=== PATIENT | male | born 1985 | race Caucasian/White ===

== ENCOUNTER 2017-04-27 17:14 | Emergency (ER) | payer SELFPAY ==
[2017-04-27] MEDS ORDERED: NORMAL SALINE 1000 ML 1,000 ML IV ONE (17:21)
--- NOTE | 2017-04-27 17:21 | ER Document Report ---
ED Extremity Problem, Upper - General Mode of Arrival: Ambulatory Information source: Patient TRAVEL OUTSIDE OF THE [place] IN LAST 30 DAYS: No - HPI Similar symptoms previously: Yes Recently seen / treated by doctor: Yes <ARABELLA BOYER - Last Filed: 04/27/17 22:10> <FUAD THOMPSON - Last Filed: 04/27/17 23:20> - General Stated Complaint: SHOULDER PAIN Time Seen by Provider: 04/27/17 17:20 Notes: Patient is a 31-year-old male that presents to the emergency department today with complaints of right shoulder dislocation. Patient states everything "went black" and he fell prior to arrival. Patient states he had chest pain prior to this syncopal episode. Patient states he has frequent right shoulder dislocations. Patient states he had an ND approximately 6 months ago with 2 stents placed. (ARABELLA BOYER) - Related Data Allergies/Adverse Reactions: Penicillins Allergy (Verified 02/10/15 12:37) Past Medical History - General Information source: Patient - Social History Smoking Status: Never Smoker Cigarette use (# per day): No Frequency of alcohol use: None Drug Abuse: None Lives with: Family Family History: Reviewed & Not Pertinent, CAD - Past Medical History Cardiac Medical History: Reports: Hx Coronary Artery Disease, Hx Heart Attack - 2013, Hx Hypercholesterolemia, Hx Hypertension Past Surgical History: Reports: Hx Appendectomy, Hx Cardiac Catheterization, Hx Orthopedic Surgery - Immunizations Hx Diphtheria, Pertussis, Tetanus Vaccination: Yes <ARABELLA BOYER - Last Filed: 04/27/17 22:10> Review of Systems - Review of Systems Constitutional: No symptoms reported EENT: No symptoms reported Cardiovascular: See HPI, Chest pain, Syncope - "went black" Respiratory: No symptoms reported Gastrointestinal: No symptoms reported Genitourinary: No symptoms reported Male Genitourinary: No symptoms reported Musculoskeletal: See HPI, Other - complains of right shoulder dislocation Skin: No symptoms reported Hematologic/Lymphatic: No symptoms reported Neurological/Psychological: No symptoms reported -: Yes All other systems reviewed and negative <ARABELLA BOYER - Last Filed: 04/27/17 22:10> Physical Exam <ARABELLA BOYER - Last Filed: 04/27/17 22:10> <FUAD THOMPSON - Last Filed: 04/27/17 23:20> - Vital signs Vitals: Temp Pulse Resp BP Pulse Ox 98.7 F 103 H 16 151/82 H 96 04/27/17 17:30 04/27/17 17:30 04/27/17 17:30 04/27/17 17:30 04/27/17 17:30 - Notes Notes: Physical Exam: General: Alert, appears mildly uncomfortable. HEENT: Normocephalic. Atraumatic. PERRL. Extraocular movements intact. Oropharynx clear. Neck: Supple. Non-tender. Respiratory: No respiratory distress. Clear and equal breath sounds bilaterally. Cardiovascular: Regular rate and rhythm. Abdominal: Normal Inspection. Non-tender. No distension. Normal Bowel Sounds. Back: Non-tender. No deformity or step off. Extremities: Moves all four extremities. Upper extremities: Right shoulder deformity with tenderness on palpation. Bruises to left upper extremity. Lower extremities: Normal inspection. No edema. Normal ROM. Neurological: Normal cognition. AAOx4. Normal speech. Psychological: Normal affect. Normal Mood. Skin: Warm. Dry. Normal color. (ARABELLA BOYER) Course - Laboratory Result Diagrams: 04/27/17 18:00 04/27/17 18:00 <ARABELLA BOYER - Last Filed: 04/27/17 22:10> - Laboratory Result Diagrams: 04/27/17 18:00 04/27/17 18:00 - Diagnostic Test Radiology reviewed: Image reviewed, Reports reviewed <FUAD THOMPSON - Last Filed: 04/27/17 23:20> - Re-evaluation Re-evalutation: 04/27/17 18:40 Patient is a 31-year-old male who is being evaluated for right shoulder pain and deformity. Bedside x-ray with no evidence for dislocation. Patient had IV pain medication ordered and had received medication in route. I went to the room to tell the patient that his x-ray was not consistent with a dislocation. Patient was very upset and began ripping off his leads and stating that he wanted to leave. Did not want to talk. Just wanted to leave. Nurse went to see the patient to take his IV out. Patient then stated that he wanted to stay. X-rays were ordered on the patient but the patient refused them. Patient had initially been pleasant and became very hostile, for what reason I am not sure. I was going to continue to workup a shoulder pain and chest pain. Patient again demanded to leave AGAINST MEDICAL ADVICE. He signed the form and was discharged by nursing staff. Patient is encouraged to seek treatment at another facility because he does not want to be seen here and he states that he has a significant coronary artery history. (FUAD THOMPSON) - Vital Signs Vital signs: Temp Pulse Resp BP Pulse Ox 98.7 F 103 H 11 L 128/91 H 98 04/27/17 17:30 04/27/17 17:30 04/27/17 18:45 04/27/17 18:45 04/27/17 18:00 - Laboratory Laboratory results interpreted by me: 04/27/17 04/27/17 18:00 18:00 RBC 4.10 L Hgb 13.0 L RDW 14.6 H Glucose 123 H Creatine Kinase 177 H Discharge <ARABELLA BOYER - Last Filed: 04/27/17 22:10> <FUAD THOMPSON - Last Filed: 04/27/17 23:20> - Discharge Clinical Impression: Shoulder pain Qualifiers: Chronicity: acute Laterality: right Qualified Code(s): M25.511 - Pain in right shoulder Chest pain Qualifiers: Chest pain type: unspecified Qualified Code(s): R07.9 - Chest pain, unspecified Condition: Stable Disposition: AGAINST MEDICAL ADVICE Instructions: Chest Pain of Unclear Cause ([facility]), Shoulder Dislocation ([facility]), Shoulder Injury ([facility]) Additional Instructions: Please follow-up with your doctor this week. Referrals: LISANDRO MATHEWS MD [Primary Care Provider] - Follow up as needed Scribe Attestation: 04/27/17 23:20 I personally performed the services described in the documentation, reviewed and edited the documentation which was dictated to the scribe in my presence, and it accurately records my words and actions. (FUAD THOMPSON) Scribe Documentation - Scribe Written by Rosauraibe:: Shannon Currie, 04/27/2017 1904 acting as scribe for :: Elza <ARABELLA BOYER - Last Filed: 04/27/17 22:10>
--- NOTE | 2017-04-27 17:57 | RADIOLOGY REPORT (SQ) ---
EXAM DESCRIPTION: SHOULDER RIGHT 1 VIEW COMPLETED DATE/TIME: 04/27/2017 5:49 pm REASON FOR STUDY: shoulder pain COMPARISON: 02/10/2015. NUMBER OF VIEWS: One view. TECHNIQUE: A single frontal view acquired of the right shoulder. LIMITATIONS: None. FINDINGS: MINERALIZATION: Normal. BONES: No acute fracture or dislocation. No worrisome bone lesions. JOINTS: No dislocation. VISUALIZED LUNGS AND RIBS: No pneumothorax. No rib fracture. SOFT TISSUES: No radiopaque foreign body. OTHER: No other significant finding. IMPRESSION: LIMITED STUDY. NO SIGNIFICANT FINDING. TECHNICAL DOCUMENTATION: JOB ID: [id number] [employer]- All Rights Reserved
[2017-04-27] MEDS ORDERED: ASPIRIN 81 MG TABLET, CHEWABLE PO ONE (18:08)
[2017-04-27] MEDS ORDERED: FENTANYL CITRATE INJ/PF 100 MCG/2 ML AMPUL IV ONE (18:21)
[2017-04-27 18:24] LABS: ABSOLUTE BASOPHILS # (AUTO) 0.1 10^3/uL (0.0-0.2); ABSOLUTE EOSINOPHILS # (AUTO) 0.2 10^3/uL (0.0-0.6); ABSOLUTE LYMPHOCYTES (AUTO) 1.3 10^3/uL (0.5-4.7); ABSOLUTE MONOCYTES (AUTO) 0.5 10^3/uL (0.1-1.4); ABSOLUTE NEUT (AUTO) 4.3 10^3/uL (1.7-8.2); BASOPHILS % (AUTO) 0.9 % (0-2); EOSINOPHILS % (AUTO) 3.5 % (0-6); HEMATOCRIT 37.9 % (37.9-51.0); HGB HCT DIFFERENCE 1.1; LYMPHOCYTES % (AUTO) 20.7 % (13-45); MEAN CORPUSCULAR HEMOGLOBIN 31.6 pg (27.0-33.4); MEAN CORPUSCULAR HGB CONC 34.3 g/dL (32.0-36.0); MEAN CORPUSCULAR VOLUME 92 fl (80-97); MONOCYTES % (AUTO) 7.8 % (3-13); RED CELL DISTRIBUTION WIDTH 14.6 % (11.5-14.0); SEGMENTED NEUTROPHILS % (AUTO) 67.1 % (42-78); WHITE BLOOD COUNT 6.4 10^3/uL (4.0-10.5)
[2017-04-27 18:37] LABS: ALANINE AMINOTRANSFERASE 25 U/L (21-72); ALBUMIN 4.1 g/dL (3.5-5.0); ALKALINE PHOSPHATASE 67 U/L (38-126); ANION GAP 13 (5-19); ASPARTATE AMINO TRANSFERASE 18 U/L (17-59); BILIRUBIN,DIRECT 0.3 mg/dL (0.0-0.4); BILIRUBIN,TOTAL 0.5 mg/dL (0.2-1.3); BLOOD UREA NITROGEN 13 mg/dL (7-20); CALCIUM 9.4 mg/dL (8.4-10.2); CARBON DIOXIDE 24 mmol/L (22-30); CHLORIDE 104 mmol/L (98-107); CREATINE KINASE 177 U/L (55-170); CREATININE RESULT 0.91 mg/dL (0.52-1.25); GLUCOSE 123 mg/dL (75-110); POTASSIUM 4.4 mmol/L (3.6-5.0); SODIUM 140.5 mmol/L (137-145); TOTAL PROTEIN 6.9 g/dL (6.3-8.2)
[2017-04-27] MEDS ORDERED: KETOROLAC TROMETHAMINE 60 MG/2 ML SDV IM ONE (18:46)
[2017-04-27 18:49] LABS: CREATINE KINASE MB 1.39 ng/mL (<4.55)
[2017-04-27 18:51] LABS: TROPONIN I < 0.012 ng/mL
[2017-04-27 19:19] VITALS: BP 151/82
--- NOTE | 2017-04-28 11:46 | EKG REPORT ---
SEVERITY:- BORDERLINE ECG - SINUS RHYTHM PROBABLE LEFT ATRIAL ABNORMALITY : Confirmed by: David Fernandez 28-Apr-2017 11:46:16
== END 2017-04-27 18:50 | disposition left against medical advice (07) ==
LOC: ER 17:14
DX: R07.9 Chest pain, unspecified (principal); M25.511 Pain in right shoulder; R55 Syncope and collapse; I25.2 Old myocardial infarction; W19.XXXA Unspecified fall, initial encounter
CPT/HCPCS: 36415; 80053; 82550; 82553; 84484; 85025; 93005; 93010; 99285

== ENCOUNTER 2019-06-16 18:51 | Emergency (ER) | payer MEDICARE, MEDICAID ==
[2019-06-16 19:06] VITALS: BP 156/87
[2019-06-16] MEDS ORDERED: ONDANSETRON HCL INJ/PF 4 MG/2 ML SDV IV ONE (19:23)
[2019-06-16] MEDS ORDERED: MORPHINE SULFATE 10 MG/ML INJ IV ONE (19:24)
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
[2019-06-16 19:46] LABS: ABSOLUTE BASOPHILS # (AUTO) 0.1 10^3/uL (0.0-0.2); ABSOLUTE EOSINOPHILS # (AUTO) 0.2 10^3/uL (0.0-0.6); ABSOLUTE MONOCYTES (AUTO) 0.4 10^3/uL (0.1-1.4); RED CELL DISTRIBUTION WIDTH 16.4 % (11.5-14.0); TOTAL CELLS COUNTED % (AUTO) 100 %
[2019-06-16 19:55] LABS: ABSOLUTE LYMPHOCYTES (AUTO) 1.5 10^3/uL (0.5-4.7); ABSOLUTE NEUT (AUTO) 4.7 10^3/uL (1.7-8.2); BASOPHILS % (AUTO) 0.8 % (0-2); EOSINOPHILS % (AUTO) 2.3 % (0-6); HEMATOCRIT 37.4 % (37.9-51.0); HEMOGLOBIN 12.6 g/dL (13.5-17.0); LYMPHOCYTES % (AUTO) 22.1 % (13-45); MEAN CORPUSCULAR HEMOGLOBIN 29.8 pg (27.0-33.4); MEAN CORPUSCULAR HGB CONC 33.8 g/dL (32.0-36.0); MEAN CORPUSCULAR VOLUME 88 fl (80-97); MONOCYTES % (AUTO) 6.3 % (3-13); PLATELET COUNT 234 10^3/uL (150-450); RED BLOOD COUNT 4.25 10^6/uL (4.35-5.55); SEGMENTED NEUTROPHILS % (AUTO) 68.5 % (42-78); WHITE BLOOD COUNT 6.8 10^3/uL (4.0-10.5)
--- NOTE | 2019-06-16 19:58 | RADIOLOGY REPORT (SQ) ---
EXAM DESCRIPTION: SHOULDER RIGHT 2 OR MORE VIEWS COMPLETED DATE/TIME: 06/16/2019 7:41 pm REASON FOR STUDY: tenderness COMPARISON: None. NUMBER OF VIEWS: Three views. TECHNIQUE: Internal rotation, external rotation, and Y view images acquired of the right shoulder. LIMITATIONS: Arm in abduction for all views. FINDINGS: MINERALIZATION: Normal. BONES: No acute fracture. No worrisome bone lesions. JOINTS: No dislocation. VISUALIZED LUNGS AND RIBS: No pneumothorax. No rib fracture. SOFT TISSUES: No radiopaque foreign body. OTHER: No other significant finding. IMPRESSION: No fracture or dislocation identified. The arm is held in abduction on all views. TECHNICAL DOCUMENTATION: JOB ID: [id number] [id number] 2010 [employer]- All Rights Reserved Reading location - IP/workstation name: [employer]
[2019-06-16 20:09] LABS: ALBUMIN 4.1 g/dL (3.5-5.0); ALKALINE PHOSPHATASE 68 U/L (38-126); ANION GAP 9 (5-19); ASPARTATE AMINO TRANSFERASE 19 U/L (17-59); BILIRUBIN,DIRECT 0.1 mg/dL (0.0-0.4); BILIRUBIN,TOTAL 0.2 mg/dL (0.2-1.3); BLOOD UREA NITROGEN 10 mg/dL (7-20); CALCIUM 9.1 mg/dL (8.4-10.2); CARBON DIOXIDE 25 mmol/L (22-30); CHLORIDE 105 mmol/L (98-107); GLUCOSE 97 mg/dL (75-110); POTASSIUM 4.1 mmol/L (3.6-5.0); TOTAL PROTEIN 7.3 g/dL (6.3-8.2)
[2019-06-16 20:13] LABS: ALCOHOL < 10 mg/dL (NONE DETECTED)
[2019-06-16 20:33] LABS: URINE AMPHETAMINES SCREEN NEGATIVE; URINE BARBITURATES SCREEN UNCONFIRMED POSITIVE; URINE BENZODIAZEPINES SCREEN NEGATIVE; URINE COCAINE SCREEN NEGATIVE; URINE MARIJUANA (THC) SCREEN NEGATIVE; URINE METHADONE SCREEN NEGATIVE; URINE PHENCYCLIDINE SCREEN NEGATIVE
== END 2019-06-16 20:30 | disposition home or self-care (01) ==
LOC: ER 18:51
DX: M25.511 Pain in right shoulder (principal); Z76.5 Malingerer [conscious simulation]; R53.1 Weakness; R32 Unspecified urinary incontinence; I25.10 Atherosclerotic heart disease of native coronary artery without angina pectoris; I10 Essential (primary) hypertension; Z88.0 Allergy status to penicillin; Z95.5 Presence of coronary angioplasty implant and graft; Z53.20 Procedure and treatment not carried out because of patient's decision for unspecified reasons
CPT/HCPCS: 36415; 80307 ×2; 83690; 85025; 80053; 84484; 73030; J2270; J2405; 96374; 96375; 99284